=== PATIENT | male | born 2005 | race Caucasian/White ===

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

== ENCOUNTER 2025-02-11 13:09 | Emergency (ER) | payer BC, SELFPAY ==
--- NOTE | ~2025-02-11 | XR_ITS ---
EXAMINATION: XR toe 2nd RT min 2V DATE: 02/11/2025 13:48 INDICATION: Pain and bruising at the right second toe after kicking a concrete block TECHNIQUE: Dorsal plantar, lateral and 2 oblique views of the right second were obtained. COMPARISON: None FINDINGS: Tiny ossific density along the dorsal rim of the base of the right second middle phalanx without a cl early defined donor site but with overlying soft tissue swelling highly suspicious for small minimall y distracted extensor tendon avulsion fracture. No other lesions suspicious for fracture identified. Joint spaces are normal. IMPRESSION: Very small minimally distracted extensor tendon avulsion fracture arising from the dorsal base of the right second middle phalanx. Reviewed, dictated and finalized at location A.
--- NOTE | 2025-02-11 13:19 | ED_ITS ---
HPI - Extremity Injury (Lower) General Chief Complaint: Extremity Injury, Lower Stated Complaint: RT second toe purple Time Seen by Provider: 02/11/25 14:01 Source: patient and RN notes reviewed Mode of arrival: ambulatory Limitations: no limitations History of Present Illness HPI Narrative: 19-year-old male presents concern for pain to the 2nd digit of the right foot. Reports 2 days ago he was playing soccer on a parking lot when he kicked a concrete parking block. He reports he walked around on it yesterday but this morning is more painful and bruised. MD complaint: foot injury Related Data Home Medications ?Medication ?Instructions ?Recorded ?Confirmed ?Last Taken ?Type No Home Medications 09/26/21 09/26/21 Unknown History Allergies Allergy/AdvReac Type Severity Reaction Status Date / Time No Known Allergies Allergy Verified 02/11/25 13:26 Review of Systems Review of Systems: CONSTITUTIONAL: Denies malaise, chills, sweats, or fever. SKIN: Denies rash or itching, open skin, laceration, abrasion, redness, warmth MUSCULOSKELETAL: Reports pain, bruising, swelling to the 2nd digit of the right foot NEUROLOGIC: Denies numbness, weakness All systems reviewed & are unremarkable except as noted in HPI and below PMFSH Past Medical History Medical History No acute medical problems Family History Family History Other No acute medical problems Social History Social History Living arrangements: with family Occupation/Education: student Comments At time of signature, agree with nursing past medical, surgical, social and family history. There is no relevant family history pertinent to the presenting complaint Exam Narrative: GENERAL: Well-appearing, well-nourished, and in no acute distress. HEAD: Normocephalic, atraumatic. EYES: PERRLA, conjunctivae clear NECK: Supple. CHEST: Speaks in full sentences. No respiratory distress. HEART: Regular rate and rhythm. Normal and equal peripheral pulses. EXTREMITIES: 2nd digit of right foot has grossly normal strength and sensation, grossly normal range of motion. Mild digit edema with moderate digit ecchymosis. Normal sensation with sensitivity to light touch and pain. General digit point tenderness. No open wounds, no skin tenting, no devitalized tissue or atrophy, no trophic changes, no obvious deformity, alignment normal, nearby joints and structures intact. Distal pulses palpable and equal bilaterally, skin warm, dry, pink. Capillary refill less than 3 seconds. SKIN: Warm, dry, no rash. NEURO: Alert and oriented x3. PSYCH: Normal mood and affect Course Course Emergency Course: Patient is aware of diagnosis, understands and agrees to treatment plan. Anticipatory guidance given. Patient agrees to follow-up as directed and is aware of reasons to seek care at the emergency department. Portions of this record may have been created with voice recognition software Level of Care: Express Care Visit Vital Signs Vital signs: Reviewed. MDM - Extremity Injury (Lower) MDM Narrative Medical decision making narrative: The patient was evaluated by myself in the express care. History is obtained from patient who is an independent historian and physical exam was performed.? Available medical records were reviewed at this time. ? Exam findings show no acute concerns or changes; patient is non-toxic appearing and is in no distress. Patient is appropriate for outpatient treatment and follow-up. ? I have evaluated and discussed social determinants of health with the patient that could potentially impact subsequent diagnosis and treatment plans. ? Patients injury and pain is consistent with musculoskeletal etiology. No signs of neurological or vascular compromise on exam. Compartments and tissues are soft without signs of compartment syndrome. Pain is felt appropriate for further evaluation on an outpatient basis. Imaging Data My impression: Images reviewed, interpreted by radiologist, agree, see report. Radiologist's impression: EXAMINATION: XR toe 2nd RT min 2V DATE: 02/11/2025 13:48 INDICATION: Pain and bruising at the right second toe after kicking a concrete block TECHNIQUE: Dorsal plantar, lateral and 2 oblique views of the right second were obtained. COMPARISON: None FINDINGS: Tiny ossific density along the dorsal rim of the base of the right second middle phalanx without a clearly defined donor site but with overlying soft tissue swelling highly suspicious for small minimally distracted extensor tendon avulsion fracture. No other lesions suspicious for fracture identified. Joint spaces are normal. IMPRESSION: Very small minimally distracted extensor tendon avulsion fracture arising from the dorsal base of the right second middle phalanx. Critical Care Time Critical Care Time Critical Care Time: No Discharge Plan Discharge Clinical Impression: Avulsion fracture Patient Disposition: Home Condition: Stable Instructions: Toe Fracture (ED) Additional Instructions: Please rest, ice and elevate the affected extremity. Please take Motrin 600mg every 8 hours, as needed, for pain (take with food). Follow up with Orthopedic Surgery in 1-2 days for further evaluation - please call for an appointment. Keep your toe romy-taped and where orthopedic she will.. Please go to ER immediately for increased pain, tingling/numbness, swelling, redness, and fever Patient Language: Romansh Prescriptions: No Action No Home Medications Follow-up/Referrals: Rony Guo MD [Physician] - PHYSICIAN,RECORDS MANAGEMENT COORDINATOR [Primary Care Provider] - Time of Disposition: 14:10
[2025-02-11 13:25] VITALS: BP 126/83; PULSE 73; RESP 16; TEMP 36.5; O2SAT 98
== END 2025-02-11 14:20 | disposition home or self-care (01) ==
PROVIDERS: Emergency Provider Nurse Practitioner
DX: S92.521A Displaced fracture of middle phalanx of right lesser toe(s), initial encounter for closed fracture (principal); W22.09XA Striking against other stationary object, initial encounter
CPT/HCPCS: 73660; 99214; G0463